=== PATIENT | female | born 1985 | race Caucasian/White ===

== ENCOUNTER 2017-08-15 08:07 | Day surgery (SDC) | payer OTHER ==
[~2017-08-15] VITALS: Ht 157.5 cm; Wt 74.8 kg
[2017-08-15 08:33] VITALS: BP 106/75
[2017-08-15 13:05] VITALS: BP 117/64
== END 2017-08-15 11:50 | disposition home or self-care (01) ==
LOC: GI 08:07 → OR 09:30 → GI 11:50
PROVIDERS: Internal Medicine Gastroenterology
PROC: 0DB68ZX Excision of Stomach, Via Natural or Artificial Opening Endoscopic, Diagnostic (ICD-10-PCS; principal; 2017-08-15 08:30)
PROC: 0DJD8ZZ Inspection of Lower Intestinal Tract, Via Natural or Artificial Opening Endoscopic (ICD-10-PCS; 2017-08-15 08:30)
DX: K92.1 Melena (principal); K64.8 Other hemorrhoids; B96.81 Helicobacter pylori [H. pylori] as the cause of diseases classified elsewhere
CPT/HCPCS: 43235; 45378; J1200; J1610; J2250; J2310; J3010; J3490